=== PATIENT | male | born 1985 | race Hispanic/Latino ===

== ENCOUNTER 2019-09-15 12:55 | Emergency (ER) | payer SELFPAY ==
--- NOTE | 2019-09-15 13:46 | RAD ---
EXAM: 4 views of the right knee HISTORY: Knee pain COMPARISON: None FINDINGS: No knee effusion is seen. There is no evidence of acute fracture or dislocation. No signifi cant degenerative changes are seen. No soft tissue swelling is present. IMPRESSION: No evidence of acute osseous abnormality.
[2019-09-15] MEDS ORDERED: Ibuprofen 200 MG TAB ONE (14:25)
== END 2019-09-15 14:30 | disposition home or self-care (01) ==
LOC: ERS 12:55
DX: M25.561 Pain in right knee (principal); F43.10 Post-traumatic stress disorder, unspecified; F17.200 Nicotine dependence, unspecified, uncomplicated; W50.0XXA Accidental hit or strike by another person, initial encounter; Y93.67 Activity, basketball

== ENCOUNTER 2019-09-16 11:02 | Emergency (ER) | payer SELFPAY ==
[2019-09-16] MEDS ORDERED: Ketorolac Tromethamine 30 MG/ML VIAL ONE (11:17)
--- NOTE | 2019-09-16 11:38 | RAD ---
XR Knee Rt 3 View HISTORY: Injury right knee pain FINDINGS: No fracture or dislocation is identified.
== END 2019-09-16 11:48 | disposition home or self-care (01) ==
LOC: ERS 11:02
DX: M25.561 Pain in right knee (principal); F43.10 Post-traumatic stress disorder, unspecified; F17.210 Nicotine dependence, cigarettes, uncomplicated
CPT/HCPCS: 96372; J1885